=== PATIENT | female | born 1955 | race African-American/Black ===

== ENCOUNTER 2016-09-04 13:40 | Emergency (ER) | payer OTHER ==
[2016-09-04 13:46] VITALS: BMI 33.4
--- NOTE | 2016-09-04 14:44 | PDOC ---
History of Present Illness - General History Source: Patient Exam Limitations: No Limitations - History of Present Illness Initial Comments: 09/04/16 17:29 The patient is a 61 year old female, with a significant past medical history of Neck Arthritis, who presents to the emergency department with generalized weakness and facial numbness onset today. She describes her weakness as mild in nature and has been going for a few weeks. She describes her facial numbness as mild, localized on her left yazdanism yesterday and the left side of her lips (But not her cheek/forehead). Pt also endorsed some discomfort under her L mandible yesterday that resolved. . She denies any recent illnesses, sick contacts or recent travel. She states that she currently has increased urination w/o frequency for the past few days. She also states that she was recently diagnosed with an UTI on 05/2016 and was placed on antibiotics. She reports that she also has left sided flank pain associated with her chief complaint that is mild in nature, without radiation or modifying factors. The patient denies chest pain, shortness of breath, headache, neck pain, and dizziness. Denies fever, chills, nausea, vomit, diarrhea and constipation. Denies dysuria, frequency, urgency and hematuria. Allergies: None Past surgical history: None reported Social history: No alcohol, tobacco or drug use reported PMD - Dr. Hosea Levi <Robert Fall - Last Filed: 09/04/16 17:28> <Burak Painter - Last Filed: 09/04/16 18:05> - General Chief Complaint: CVA/TIA Stated Complaint: FATIGUE, TREMORS Time Seen by Provider: 09/04/16 14:00 Past History <Robert Fall - Last Filed: 09/04/16 17:28> - Psycho/Social/Smoking Cessation Hx Anxiety: No Suicidal Ideation: No Smoking History: Never smoked Have you smoked in the past 12 months: No Information on smoking cessation initiated: No Hx Alcohol Use: No Drug/Substance Use Hx: No Substance Use Type: None <Burak Painter - Last Filed: 09/04/16 18:05> - Past Medical History Allergies/Adverse Reactions: Allergies Allergy/AdvReac Type Severity Reaction Status Date / Time shellfish derived Allergy Severe Unverified 09/04/16 13:43 No Known Drug Allergies Allergy Unverified 09/04/16 13:43 Home Medications: Ambulatory Orders NK [No Known Home Medication] 09/04/16 Review of Systems - Review of Systems Able to Perform ROS?: Yes Comments:: 09/04/16 17:29 CONSTITUTIONAL: Reported: Generalized Weakness No reported: Fever, Chills, Diaphoresis, Malaise, Loss of Appetite HEENT: No reported: Rhinorrhea, Nasal Congestion, Throat Pain, Throat Swelling, Difficulty Swallowing, Mouth Swelling, Ear Pain, Eye Pain, Visual Changes CARDIOVASCULAR: No reported: Chest Pain, Syncope, Palpitations, Irregular Heart Rate, Lightheadedness, Peripheral Edema RESPIRATORY: No reported: Cough, Shortness of Breath, SOB with Exertion, Orthopnea, Wheezing , Stridor, Hemoptysis GASTROINTESTINAL: No reported: Abdominal pain, Abdominal Distension, Nausea, Vomiting, Diarrhea, Constipation, Melena, Hematochezia GENITOURINARY: Reported: urinary frequency No reported: Dysuria, Urgency, Hesitancy, Genital Pain MUSCULOSKELETAL: No reported: Myalgia, Arthralgia, Joint Swelling, Back pain, Neck Pain SKIN: No reported: Rash, Itching, Pallor HEMEATOLOGIC/IMMUNOLOGIC: No reported: Easy Bleeding, Easy Bruising, Lymphadenopathy, Frequent infections ENDOCRINE: No reported: Unexplained Weight Gain, Unexplained Weight Loss, Heat Intolerance , Cold Intolerance NEUROLOGIC: Reported: Left yazdanism tinglin and left sided lip tingling. No reported: Headache, Vertigo, Lightheadedness, Unsteady Gait, Seizure, Mental Status Changes, Incontinence PSYCHIATRIC: No reported: Anxiety, Depression <Robert Fall - Last Filed: 09/04/16 17:28> *Physical Exam - Vital Signs Last Vital Signs Temp Pulse Resp BP Pulse Ox 97.7 F 96 H 18 145/81 97 09/04/16 13:43 09/04/16 13:43 09/04/16 13:43 09/04/16 13:43 09/04/16 13:43 - Physical Exam Comments: 09/04/16 17:29 GENERAL: The patient is awake, alert, and fully oriented, Nontoxic - in no acute distress. HEAD: Normocephalic, atraumatic. EYES: extraocular movements intact, sclera anicteric, conjunctiva clear. ENT: Normal voice, Moist mucous membranes. NECK: Normal range of motion, supple LUNGS: Breath sounds equal, clear to auscultation bilaterally. No wheezes, no rhonchi, no rales. HEART: Regular rate and rhythm, without murmur, rub or gallop. ABDOMEN: Soft, nontender, normoactive bowel sounds. No guarding, no rebound.No CVA tenderness EXTREMITIES: Normal range of motion, no edema. No clubbing or cyanosis. No cords, erythema, or tenderness. NEUROLOGICAL: No facial assymetry, Normal speech, PSYCH: Normal mood, normal affect. SKIN: Warm, Dry, normal turgor NEURO: Mental status: The patient is oriented x3. Cranial nerves: Cranial nerves II through XII are intact Motor: The upper extremities are 5 over 5 in all muscle groups. The lower extremities are 5 over 5 in all muscle groups. Negative pronator drift Sensation: Sensation is intact to light touch throughout. romberg negative Cerebellar: [id number] is normal in both upper extremities. Heel-knee- escobar is normal in both lower extremities. rapid alternating movements are normal. Reflexes: 2+ and symmetric in the upper and lower extremities. Gait: Normal. Heel and toe walking are normal. Tandem gait is normal. <Robert Fall - Last Filed: 09/04/16 17:28> - Vital Signs Last Vital Signs Temp Pulse Resp BP Pulse Ox 97.7 F 96 H 18 145/81 97 09/04/16 13:43 09/04/16 13:43 09/04/16 13:43 09/04/16 13:43 09/04/16 13:43 <Burak Painter - Last Filed: 09/04/16 18:05> Heart Score/ECG Review - ECG Impressions Comment:: 09/04/16 15:39 Twelve-lead EKG was performed and reviewed by me. There is normal sinus rhythm with a normal rate. Rate of 82 The intervals are normal. There is normal R wave progression There are no ST or T wave abnormalities suggestive of acute ischemia <Burak Painter - Last Filed: 09/04/16 18:05> ED Treatment Course - LABORATORY CBC & Chemistry Diagram: 09/04/16 15:24 09/04/16 15:24 - ADDITIONAL ORDERS Additional order review: Laboratory Results 09/04/16 15:24 Sodium 143 Potassium 4.2 Chloride 107 Carbon Dioxide 28 Anion Gap 8 BUN 11 Creatinine 1.0 Creat Clearance w eGFR 56.00 Random Glucose 88 Calcium 9.0 Total Bilirubin 0.4 AST 17 ALT 15 Alkaline Phosphatase 82 Total Protein 7.9 Albumin 3.7 09/04/16 15:24 RBC 4.76 MCV 79.7 L MCHC 32.1 RDW 15.1 MPV 7.6 Neutrophils % 77.4 Lymphocytes % 16.0 Monocytes % 5.4 Eosinophils % 0.5 Basophils % 0.7 <Robert Fall - Last Filed: 09/04/16 17:28> - LABORATORY CBC & Chemistry Diagram: 09/04/16 15:24 09/04/16 15:24 <Burak Painter - Last Filed: 09/04/16 18:05> Medical Decision Making - Medical Decision Making 09/04/16 14:44 61y F no pmhx presents with complaint of facial tingling. Pt states that yesterday she had a mild discomfort under her L mandible that resolved, she then had some tingling and pain on her L yazdanism this morning followed by tingling just above her L lip that all resolved. The pt denies any sensation changes in area surrounding the focla locations (does not fall into V2/3 distribution), no associated cp, plapitations, neck pain, back pain. pt also endorses feeling generally weak and also some polyuria today. will r/o metabolic dernagement, anemia considered CVA however the pts sypmtoms are highly atypical with CVA will ck UA to r/o UTI will reassess 09/04/16 18:03 labs reviewed and are unremarkble will dc the pt with pmd fu return precautions were dicussed no neurological deficits on reexam I discussed the physical exam findings, ancillary test results and final diagnoses with the patient. I answered all of the patient's questions. The patient was satisfied with the care received and felt comfortable with the discharge plan and treatment plan. The patient will call their primary care physician within 24 hours to arrange follow-up and will return to the Emergency Department with any new, persistent or worsening symptoms. <Burak Painter - Last Filed: 09/04/16 18:05> *DC/Admit/Observation/Transfer - Attestations Scribe Attestion: 09/04/16 17:29 Documentation prepared by Robert Fall, acting as medical billing coder for Burak Paniter MD <Robert Fall - Last Filed: 09/04/16 17:28> - Discharge Dispostion Admit: No <Burak Painter - Last Filed: 09/04/16 18:05> Diagnosis at time of Disposition: Fatigue Qualifiers: Fatigue type: unspecified Qualified Code(s): R53.83 - Other fatigue - Discharge Dispostion Disposition: HOME Condition at time of disposition: Improved - Referrals Referrals: Hosea Levi MD [Primary Care Provider] - - Patient Instructions Printed Discharge Instructions: DI for Fatigue Additional Instructions: Return to the emergency department immediately with ANY new, persistent or worsening symptoms. You MUST call and follow up with your doctor tomorrow for further evaluation of your symptoms. Results were discussed with you. Please make sure your doctor reviews the results of your emergency evaluation. If you had any xrays during your visit, it was read preliminarily by myself, a Radiologist will review it and if there are any additional findings we will call you. Print Language: [place]
[2016-09-04 16:01] LABS: BASOPHIL 0.7 % (0-2.0); EOSINOPHIL 0.5 % (0-4.5); MCH 25.6 pg (25.7-33.7); MCHC 32.1 g/dl (32.0-36.0); MEAN CELL VOLUME 79.7 fl (80-96); MEAN PLT VOLUME 7.6 fl (7.5-11.1); NEUTROPHILS 77.4 % (42.8-82.8); PLATELET COUNT 271 K/MM3 (134-434); RDW 15.1 % (11.6-15.6); WHITE BLOOD COUNT 7.5 K/mm3 (4.0-10.0)
[2016-09-04 16:24] LABS: ALBUMIN 3.7 g/dl (3.4-5.0); COCKROFT - GAULT 90.695; TOT PROT 7.9 g/dl (6.4-8.2)
[2016-09-04 16:28] LABS: BILIRUBIN,TOTAL 0.4 mg/dL (0.2-1.0)
[2016-09-04 17:52] LABS: URINE APPEARANCE CLEAR; URINE BILIRUBIN NEGATIVE (NEGATIVE); URINE BLOOD NEGATIVE (NEGATIVE); URINE COLOR STRAW; URINE GLUCOSE (UA) NEGATIVE (NEGATIVE); URINE KETONE NEGATIVE (NEGATIVE); URINE LEUK ESTERASE NEGATIVE (NEGATIVE); URINE NITRITE NEGATIVE (NEGATIVE); URINE PROTEIN NEGATIVE (NEGATIVE); URINE UROBILINOGEN NEGATIVE E.U./dl (0.2-1.0)
[2016-09-04 18:43] VITALS: BP 124/66; PULSE 82; TEMP 97.8
--- NOTE | 2016-09-05 11:09 | EKG ---
Test Reason : Blood Pressure : / mmHG Vent. Rate : 082 BPM Atrial Rate : 082 BPM P-R Int : 160 ms QRS Dur : 086 ms QT Int : 394 ms P-R-T Axes : 072 -13 029 degrees QTc Int : 460 ms NORMAL SINUS RHYTHM RIGHT ATRIAL ENLARGEMENT BORDERLINE ECG WHEN COMPARED WITH ECG OF 02-JUL-2002 18:34, QT HAS LENGTHENED CLINICAL CORRELATION IS RECOMMENDED Confirmed by MAX HANNAH, TESSA ([id number]) on 09/05/2016 11:09:30 AM Referred By: Confirmed By:TESSA SANTANA MD
== END 2016-09-04 18:43 | disposition home or self-care (01) ==
LOC: JER 13:40
DX: R53.83 Other fatigue (principal)
CPT/HCPCS: 36415; 80053; 81003; 85025; 93005; 93010; 99283-25

== ENCOUNTER 2020-05-06 14:36 | Emergency (ER) | payer OTHER ==
[2020-05-06 15:13] VITALS: TEMP 97.8; BMI 29.2
[2020-05-06] MEDS ORDERED: BAMLANIVIMAB 700 MG in SODIUM CHLORIDE 180 ML IVPB ONE (15:19)
[2020-05-06 19:25] VITALS: BP 114/62; PULSE 94
== END 2020-05-06 19:25 | disposition home or self-care (01) ==
LOC: JER 14:36
PROC: 3E033NZ Introduction of Analgesics, Hypnotics, Sedatives into Peripheral Vein, Percutaneous Approach (ICD-10-PCS; principal; 2020-05-06)
DX: Z11.52 Encounter for screening for COVID-19 (principal)
CPT/HCPCS: 96374; 99284-25; M0239; Q0239

== ENCOUNTER 2023-02-04 03:02 | Inpatient (IN) | payer OTHER ==
[2023-02-04 03:16] VITALS: BMI 34.0
[2023-02-04 03:48] LABS: BASO % 1.1 % (0-2.0); EOS % 1.5 % (0-4.5); HEMATOCRIT 35.5 % (32.4-45.2); HEMOGLOBIN 11.8 GM/dL (10.7-15.3); LYMPH % 22.4 % (8-40); MCH 26.4 pg (25.7-33.7); MCHC 33.2 g/dl (32.0-36.0); MEAN CELL VOLUME 79.5 fl (80-96); MONO % 5.5 % (3.8-10.2); NEUT % 69.5 % (42.8-82.8); PLATELET COUNT 261 10^3/uL (134-434); RBC 4.47 M/mm3 (3.60-5.2); RDW 15.3 % (11.6-15.6); WHITE BLOOD COUNT 8.8 K/mm3 (4.0-10.0)
[2023-02-04 04:03] LABS: INR 1.04 (0.83-1.09); PROTHROMBIN TIME (PATIENT) 12.1 SEC (9.7-13.0)
[2023-02-04 04:06] LABS: ACTIVATED PTT 28.1 SECONDS (25.2-36.5)
[2023-02-04] MEDS ORDERED: SODIUM CHLORIDE 0.9% 500 ML INFUS.BAG IV ONE (04:07)
[2023-02-04 04:16] LABS: ALBUMIN 3.2 g/dl (3.4-5.0); BLOOD UREA NITROGEN 10.9 mg/dL (7-18); CALCIUM 8.6 mg/dL (8.5-10.1)
[2023-02-04 04:19] LABS: CREATININE 0.9 mg/dL (0.55-1.3)
[2023-02-04 04:21] LABS: BILIRUBIN,TOTAL 0.5 mg/dL (0.2-1); TOT PROT 7.6 g/dl (6.4-8.2)
[2023-02-04 04:24] LABS: N-TERMINAL BNP 80.3 pg/ml (5-125)
[2023-02-04 04:27] LABS: MAGNESIUM 2.1 mg/dL (1.8-2.4)
[2023-02-04] MEDS ORDERED: ACETAMINOPHEN INJECTION 100 ML IVPB ONE (05:28)
[2023-02-04] MEDS ORDERED: ACETAMINOPHEN 1000 MG/100 ML BAG IVPB ONE (05:28)
[2023-02-04 05:46] LABS: URINE APPEARANCE Clear; URINE BILIRUBIN Negative (NEGATIVE); URINE COLOR Yellow; URINE GLUCOSE (UA) Negative (NEGATIVE); URINE KETONE Negative (NEGATIVE); URINE LEUK ESTERASE Negative (NEGATIVE); URINE NITRITE Negative (NEGATIVE); URINE PROTEIN Negative (NEGATIVE); URINE UROBILINOGEN 0.2 mg/dL (0.2-1.0)
[2023-02-04 14:09] LABS: EPI CELLS 6 /uL (0-25.1); HYALINE CASTS 0 /uL (0-3.1); URINE BACTERIA 51 /uL (0-1359); URINE RBC 10 /uL (0-23.9); URINE WBC 2 /uL (0-25.8)
[2023-02-04] MEDS: ACETAMINOPHEN 325 MG TABLET (FP) PO PRN (18:42)
[2023-02-04] MEDS: CHLORHEXIDINE GLUCONATE 4% CLEANSER FOR DECOLONIZATION TP SCH (21:27)
[2023-02-04] MEDS: MUPIROCIN 2% TOPICAL OINTMENT FOR DECOLONIZATION NS SCH (21:28)
[2023-02-05 07:19] LABS: HEMATOCRIT 32.3 % (32.4-45.2); HEMOGLOBIN 10.4 GM/dL (10.7-15.3); MCH 25.9 pg (25.7-33.7); MCHC 32.2 g/dl (32.0-36.0); MEAN CELL VOLUME 80.7 fl (80-96); MEAN PLT VOLUME 7.3 fl (7.5-11.1); PLATELET COUNT 229 10^3/uL (134-434); RBC 4.01 M/mm3 (3.60-5.2); RDW 15.1 % (11.6-15.6); WHITE BLOOD COUNT 7.1 K/mm3 (4.0-10.0)
[2023-02-05 07:40] LABS: POTASSIUM 3.9 mmol/L (3.5-5.1)
[2023-02-05 07:43] LABS: CALCIUM 8.1 mg/dL (8.5-10.1)
[2023-02-05 07:44] LABS: ALBUMIN 2.7 g/dl (3.4-5.0); BLOOD UREA NITROGEN 12.3 mg/dL (7-18)
[2023-02-05 07:47] LABS: CREATININE 0.8 mg/dL (0.55-1.3); PHOSPHOROUS 2.9 mg/dL (2.5-4.9)
[2023-02-05 07:49] LABS: BILIRUBIN,TOTAL 0.6 mg/dL (0.2-1); TOT PROT 6.5 g/dl (6.4-8.2)
[2023-02-05] MEDS: MUPIROCIN 2% TOPICAL OINTMENT FOR DECOLONIZATION NS SCH ×2 (10:00→21:03)
[2023-02-05] MEDS: ACETAMINOPHEN 325 MG TABLET (FP) PO PRN ×2 (10:02→23:41)
[2023-02-05] MEDS: CHLORHEXIDINE GLUCONATE 4% CLEANSER FOR DECOLONIZATION TP SCH (21:04)
[2023-02-06] MEDS ORDERED: ACETAMINOPHEN 325 MG TABLET (FP) PO PRN (05:36)
[2023-02-06] MEDS ORDERED: MUPIROCIN 2% TOPICAL OINTMENT FOR DECOLONIZATION NS SCH (10:00)
[2023-02-06] MEDS ORDERED: CHLORHEXIDINE GLUCONATE 4% CLEANSER FOR DECOLONIZATION TP SCH (22:00)
[2023-02-07 06:11] VITALS: RESP 18
[2023-02-07 14:12] VITALS: BP 101/71; PULSE 97; TEMP 98.5
== END 2023-02-07 20:50 | disposition home or self-care (01) | DRG 66 ==
LOC: JER 03:02 → JERBED 05:52 → JICU 09:06 → J8W 02-06 05:08
PROVIDERS: ADMIT Internal Medicine; ATTEND Internal Medicine
DX: I62.00 Nontraumatic subdural hemorrhage, unspecified (principal); E78.00 Pure hypercholesterolemia, unspecified; I10 Essential (primary) hypertension; I25.10 Atherosclerotic heart disease of native coronary artery without angina pectoris; M19.90 Unspecified osteoarthritis, unspecified site; M17.0 Bilateral primary osteoarthritis of knee; E66.9 Obesity, unspecified; Z68.34 Body mass index [BMI] 34.0-34.9, adult; M54.50 Low back pain, unspecified; I44.0 Atrioventricular block, first degree; E88.09 Other disorders of plasma-protein metabolism, not elsewhere classified; W18.30XA Fall on same level, unspecified, initial encounter; Y92.098 Other place in other non-institutional residence as the place of occurrence of the external cause
CPT/HCPCS: 0241U-QW; 36415; 70450-TC; 70551-TC; 71045-TC-FY; 73030-TC-RT-FY; 73060-TC-RT-FY; 80053; 80061; 81003; 82607; 83036; 83735; 83880; 84100; 84439; 84443; 84484; 85025; 85027; 85610; 85730; 86850; 86900; 86901; 87086; 93005; 93010; 93306-TC; 93880-TC; 97116-GP; 97162-GP; 99285-25